=== PATIENT | female | born 1955 | race Caucasian/White ===

== ENCOUNTER 2021-04-27 18:38 | Emergency (ER) | payer OTHER, BC ==
[2021-04-27 19:09] VITALS: BMI 24.6
[2021-04-27] MEDS ORDERED: CASIRIVIMAB/IMDEVIMAB 10 ML in SODIUM CHLORIDE 100 ML IVPB ONE (21:11)
[2021-04-27 21:35] LABS: HEMOGLOBIN 14.7 GM/dL (10.7-15.3); MCH 30.5 pg (25.7-33.7); MCHC 34.1 g/dl (32.0-36.0); MEAN CELL VOLUME 89.5 fl (80-96); MEAN PLT VOLUME 8.9 fl (7.5-11.1); PLATELET COUNT 169 10^3/uL (134-434); RDW 12.9 % (11.6-15.6); WHITE BLOOD COUNT 2.6 K/mm3 (4.0-10.0)
[2021-04-27 22:02] LABS: ALBUMIN 3.2 g/dl (3.4-5.0); CALCIUM 8.8 mg/dL (8.5-10.1)
[2021-04-27 22:03] LABS: BLOOD UREA NITROGEN 14.6 mg/dL (7-18)
[2021-04-27 22:05] LABS: CREATININE 0.7 mg/dL (0.55-1.3)
[2021-04-27 22:07] LABS: BILIRUBIN,TOTAL 0.3 mg/dL (0.2-1); TOT PROT 6.8 g/dl (6.4-8.2)
[2021-04-27 22:32] VITALS: BP 128/76; PULSE 69
[2021-04-27 22:33] VITALS: TEMP 98.9
== END 2021-04-27 23:01 | disposition home or self-care (01) ==
LOC: JCOVINFU 18:38
DX: U07.1 COVID-19 (principal)
CPT/HCPCS: 36415; 80053; 85027; 99284-25; Q0240